=== PATIENT | male | born 1945 | race African-American/Black ===

== ENCOUNTER 2018-05-24 21:34 | Inpatient (IN) | payer MEDICAID, OTHER ==
[~2018-05-24] VITALS: Ht 182.9 cm; Wt 99.8 kg
[2018-05-24] MEDS ORDERED: HYDROcodone/APAP 5/325MG 1 TAB TABLET PO ONE (22:45)
--- NOTE | 2018-05-24 23:35 | PHYS DOC ---
Past Medical History Past Medical History: No Pertinent History Past Surgical History: Other Additional Past Surgical Histo: THYROIDECTOMY Alcohol Use: None Drug Use: None Adult General Chief Complaint Chief Complaint: UPPER EXTREMITY INJURY HPI HPI Patient is a 73 year old male who presents with right wrist pain after a fall, slipped on the ice falling backwards catching himself on his outstretched hand. Increased pain with movement. Improved pain with holding it still. No numbness or tingling. History is through the patient's son who is acting as financial accounting analyst. Pain is moderate to severe, especially with movement. [] Review of Systems Review of Systems Constitutional: Denies fever or chills [] Eyes: Denies change in visual acuity, redness, or eye pain [] HENT: Denies nasal congestion or sore throat [] Respiratory: Denies cough or shortness of breath [] Cardiovascular: No chest pain or palpitations[] GI: Denies abdominal pain, nausea, vomiting, bloody stools or diarrhea [] : Denies dysuria or hematuria [] Musculoskeletal: Denies back pain, see history of present illness[] Integument: Denies rash or skin lesions [] Neurologic: Denies headache, focal weakness or sensory changes [] Endocrine: Denies polyuria or polydipsia [] All other systems were reviewed and found to be within normal limits, except as documented in this note. Current Medications Current Medications Current Medications Medications (Trade) Dose Ordered Sig/David Start Time Stop Time Status Last Admin Dose Admin Acetaminophen/ Hydrocodone Bitart (Lortab 5/325) 1 tab 1X ONCE 05/24/18 22:45 05/24/18 22:46 DC 05/24/18 22:50 1 TAB Allergies Allergies Allergies Coded Allergies Type Severity Reaction Last Updated Verified No Known Drug Allergies 05/24/18 No Physical Exam Physical Exam Constitutional: Well developed, well nourished, mild to moderate discomfort, non -toxic appearance. [] HENT: Normocephalic, atraumatic, bilateral external ears normal, oropharynx moist, no oral exudates, nose normal. [] Eyes: PERRLA, EOMI, conjunctiva normal, no discharge. [] Neck: Normal range of motion, no tenderness, supple, no stridor. [] Cardiovascular:Heart rate regular rhythm, no murmur [] Lungs & Thorax: Bilateral breath sounds clear to auscultation [] Abdomen: Bowel sounds normal, soft, no tenderness, no masses, no pulsatile masses. [] Skin: Warm, dry, no erythema, no rash. [] Back: No tenderness, no CVA tenderness. [] Extremities: Tenderness of the distal radius. Patient has limited active range of motion at the wrist secondary to pain. No elbow tenderness. Patient is distally neurovascularly intact, cap refill less than 2 seconds. There is edema around the wrist. Other joints show no cyanosis, no clubbing, ROM intact, no edema. [] Neurologic: Alert and oriented X 3, normal motor function, normal sensory function, no focal deficits noted. [] Psychologic: Affect normal, judgement normal, mood normal. [] Current Patient Data Vital Signs Vital Signs Date Time Temp Pulse Resp B/P (MAP) Pulse Ox O2 Delivery O2 Flow Rate FiO2 05/24/18 22:50 16 98 Room Air 05/24/18 22:05 97.7 75 143/80 (101) 97.7 EKG EKG [] Radiology/Procedures Radiology/Procedures X-ray of the right wrist and forearm shows evidence of a comminuted distal radius fracture[] Course & Med Decision Making Course & Med Decision Making Pertinent Labs and Imaging studies reviewed. (See chart for details) ED course: Patient arrived, was placed in bed, tolerate exam well. Patient was given pain medicine and had x-rays obtained. After the return the x-ray, consultation was made with orthopedic surgery service who noted the patient would need to be operatively repaired. Offered patient and family the option of going home for outpatient follow-up versus admission and they elected admission for early operative repair. Consultation was subsequently made with the hospitalist service for medical management and clearance. Medical decision making: Patient appears to have a fracture of the distal radius , no evidence of an open fracture, no evidence of neuro or vascular compromise.[ ] Dragon Disclaimer Dragon Disclaimer This electronic medical record was generated, in whole or in part, using a voice recognition dictation system. Departure Departure Impression: Primary Impression: Fracture of right distal radius Disposition: 01 HOME, SELF-CARE Admitting Physician: Other Condition: IMPROVED Referrals: UNKNOWN PCP NAME (PCP) Splinting Patient and family informed of findings. Distal radius fracture, splinted applied by nurse and physician[]. The splint is checked by me [], with appropriate stabilization of the injury. Distal capillary refill less than 2 seconds and distal neurologic function intact] RICKY LIMON DO May 24, 2018 23:35
[2018-05-24] MEDS ORDERED: ONDANSETRON PF 4 MG/2 ML VIAL. IV PRN (23:45)
[2018-05-24] MEDS ORDERED: ACETAMINOPHEN 325 MG TABLET. PO PRN (23:45)
[2018-05-25] VITALS (12 sets, daily range): BP systolic 137–165; BP diastolic 85–98
[2018-05-25 00:01] LABS: BASO % 1 % (0-3); EOS % 0 % (0-3); HEMOGLOBIN 12.3 g/dL (13.0-17.5); LYMPH # 0.5 x10^3/uL (1.0-4.8); LYMPH % 6 % (24-48); MEAN CORPUSCULAR HEMOGLOBIN 30 pg (25-35); MEAN CORPUSCULAR HGB CONC 33 g/dL (31-37); MEAN CORPUSCULAR VOLUME 91 fL (79-100); MONO # 0.2 x10^3/uL (0.0-1.1); MONO % 3 % (0-9); NEUT # 7.9 x10^3uL (1.8-7.7); NEUT % 91 % (31-73); PLATELET COUNT 252 x10^3/uL (140-400); RED BLOOD COUNT 4.07 x10^6/uL (4.30-5.70); RED CELL DISTRIBUTION WIDTH 13.9 % (11.5-14.5); WHITE BLOOD COUNT 8.7 x10^3/uL (4.0-11.0)
[2018-05-25 00:08] LABS: CALCIUM 9.7 mg/dL (8.5-10.1); CREATININE 1.3 mg/dL (0.7-1.3); GFR 65.8; POTASSIUM 3.3 mmol/L (3.5-5.1)
[2018-05-25 00:12] LABS: PROTHROMBIN TIME PATIENT 12.7 SEC (11.7-14.0)
[2018-05-25 00:56] LABS: % BANDS 8 % (0-9); % LYMPHS 7 % (24-48); % MONOS 2 % (0-10); % SEGS 83 % (35-66)
[2018-05-25 00:57] LABS: PLT ESTIMATE ADEQUATE (ADEQUATE)
--- NOTE | 2018-05-25 03:50 | NUR ---
Received report from SENTHIL Sanderson in the Emergency Department. Patient arrived to unit at 0100 via wheelchair accompanied by his and son. 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 Patient complaint of right distal radius arm fracture and reported his pain a 3/10. Patient assessment was conducted and documented. Patient son translated for the patient during the admission. was to stay the night with the patient. Patient was orientated to the room, bed controls and call light and remote functions. Patients bed was placed in the lowest position and locked. Will continue to monitor the patient.
--- NOTE | 2018-05-25 08:00 | RAD ---
Indication: Fall with pain and swelling in the wrist TECHNIQUE: 3 views of the right wrist and 2 views of the right forearm COMPARISON: None FINDINGS: Wrist: Comminuted fracture is seen of the distal radius with no extension to the radiocarpal joint. Extension is seen to the distal radioulnar joint. Moderate wrist swelling. Forearm: No proximal forearm fracture. Elbow joint appears intact. IMPRESSION: Comminuted fracture of the distal radius. Electronically signed by: Sebastian Hancock DO (05/25/2018 7:55 AM) [facility]
[2018-05-25] MEDS: MORPHINE SULFATE 4 MG/ML VIAL. IV PRN ×2 (10:56→15:11)
--- NOTE | 2018-05-25 11:08 | PDOC1 ---
History and Physical Date of Admission Date of Admission DATE: 05/25/18 TIME: 11:06 Identification/Chief Complaint Chief Complaint presented to ER with right wrist pain after a fall, slipped on the ice falling backwards catching himself on his outstretched hand. Increased pain with movement. . No numbness or tingling. History is through the patient's son who is acting as recycling operator. Operative Note Operative Note Date of surgery: 05/25/2018 Preoperative diagnosis: Displaced 2 part right distal radius fracture Postoperative diagnosis: Same Operative procedure: Operative reduction internal fixation right distal radius fracture with volar plate and screw fixation Surgeon: Constantine Anesthesia: Gen. Estimated blood loss: 10 mL Complications: None Past Medical History Past Medical History Past Medical History Past Medical History: No Pertinent History Past Surgical History: Other Additional Past Surgical Histo: THYROIDECTOMY Alcohol Use: None Drug Use: None FAMILY HX HTN Cardiovascular: HTN Endocrine: No pertinent hx Dermatology: No pertinent hx Family History Family History: Hypertension Social History Smoke: No ALCOHOL: none Drugs: None Current Medications Current Medications Current Medications Acetaminophen/ Hydrocodone Bitart (Lortab 5/325) 1 tab 1X ONCE PO Last administered on 05/24/18at 22:50; Start 05/24/18 at 22:45; Stop 05/24/18 at 22:46; Status DC Ondansetron HCl (Zofran) 4 mg PRN Q8HRS PRN IV NAUSEA/VOMITING; Start 05/24/18 at 23:45; Stop 05/25/18 at 23:44 Morphine Sulfate (Morphine Sulfate) 4 mg PRN Q2HR PRN IV PAIN Last administered on 05/25/18at 10:56; Start 05/24/18 at 23:45; Stop 05/25/18 at 23:44 Acetaminophen (Tylenol) 650 mg PRN Q4HRS PRN PO FEVER; Start 05/24/18 at 23:45; Stop 05/25/18 at 23:44 Allergies Allergies: Coded Allergies: No Known Drug Allergies (Unverified , 05/24/18) ROS Review of System Review of Systems Review of Systems Constitutional: Denies fever or chills [] Eyes: Denies change in visual acuity, redness, or eye pain [] HENT: Denies nasal congestion or sore throat [] Respiratory: Denies cough or shortness of breath [] Cardiovascular: No chest pain or palpitations[] GI: Denies abdominal pain, nausea, vomiting, bloody stools or diarrhea [] : Denies dysuria or hematuria [] Musculoskeletal: Denies back pain, see history of present illness[] Integument: Denies rash or skin lesions [] Neurologic: Denies headache, focal weakness or sensory changes [] Endocrine: Denies polyuria or polydipsia [] 14 pt systems were reviewed and found to be within normal limits, except as documented General: YES: Fatigue ALLERGY AND IMMUNOLOGY: No: Hives, Insect Bite Sensitivity, Itchy/Watery Eyes, Nasal Congestion, Post Nasal Drip, Seasonal Allergies, Other Respiratory: No: Cough, Hemoptysis, Orthopnea, Pleuritic Pain, Shortness of breath, SOB with excertion, Sputum Changes, Stridor, Tachypnea, Wheezing, Other Cardiovascular: No Chest Pain, No Palpitations, No Orthopnea, No Paroxysmal Noc. Dyspnea, No Edema, No Lt Headedness, No Other Neurological: Yes Gait Disturbance Physical Exam Physical Exam Physical Exam Physical Exam Constitutional: Well developed, well nourished, mild to moderate discomfort, non -toxic appearance. [] HENT: Normocephalic, atraumatic, bilateral external ears normal, oropharynx moist, no oral exudates, nose normal. [] Eyes: PERRLA, EOMI, conjunctiva normal, no discharge. [] Neck: Normal range of motion, no tenderness, supple, no stridor. [] Cardiovascular:Heart rate regular rhythm, no murmur [] Lungs & Thorax: Bilateral breath sounds clear to auscultation [] Abdomen: Bowel sounds normal, soft, no tenderness, no masses, no pulsatile masses. [] Skin: Warm, dry, no erythema, no rash. [] Back: No tenderness, no CVA tenderness. [] Extremities: Tenderness of the distal radius. Patient has limited active range of motion at the wrist secondary to pain. No elbow tenderness. Patient is distally neurovascularly intact, cap refill less than 2 seconds. There is edema around the wrist. Other joints show no cyanosis, no clubbing, ROM intact, no edema. [] Neurologic: Alert and oriented X 3, normal motor function, normal sensory function, no focal deficits noted. [] Psychologic: Affect normal, judgement normal, mood normal. [] General: Oriented X3, Cooperative Lungs: Clear to auscultation Heart: RRR Breasts: Not examined Abdomen: Soft Rectal Exam: not examined PELVIC: Examination not indicated Extremities: No cyanosis Neuro: Normal speech, Cranial nerves 3-12 NL Psych/Mental Status: Mental status NL Vitals Vitals Vital Signs Date Time Temp Pulse Resp B/P (MAP) Pulse Ox O2 Delivery O2 Flow Rate FiO2 05/25/18 10:56 98 Room Air 05/25/18 07:00 91.8 85 16 141/88 (105) 91.8 Labs Labs Laboratory Tests Test 05/24/18 23:50 White Blood Count 8.7 x10^3/uL (4.0-11.0) Red Blood Count 4.07 x10^6/uL (4.30-5.70) Hemoglobin 12.3 g/dL (13.0-17.5) Hematocrit 37.0 % (39.0-53.0) Mean Corpuscular Volume 91 fL (79-100) Mean Corpuscular Hemoglobin 30 pg (25-35) Mean Corpuscular Hemoglobin Concent 33 g/dL (31-37) Red Cell Distribution Width 13.9 % (11.5-14.5) Platelet Count 252 x10^3/uL (140-400) Neutrophils (%) (Auto) 91 % (31-73) Lymphocytes (%) (Auto) 6 % (24-48) Monocytes (%) (Auto) 3 % (0-9) Eosinophils (%) (Auto) 0 % (0-3) Basophils (%) (Auto) 1 % (0-3) Neutrophils # (Auto) 7.9 x10^3uL (1.8-7.7) Lymphocytes # (Auto) 0.5 x10^3/uL (1.0-4.8) Monocytes # (Auto) 0.2 x10^3/uL (0.0-1.1) Eosinophils # (Auto) 0.0 x10^3/uL (0.0-0.7) Basophils # (Auto) 0.0 x10^3/uL (0.0-0.2) Segmented Neutrophils % 83 % (35-66) Band Neutrophils % 8 % (0-9) Lymphocytes % 7 % (24-48) Monocytes % 2 % (0-10) Platelet Estimate Adequate (ADEQUATE) Prothrombin Time 12.7 SEC (11.7-14.0) Prothromb Time International Ratio 1.0 (0.8-1.1) Sodium Level 137 mmol/L (136-145) Potassium Level 3.3 mmol/L (3.5-5.1) Chloride Level 101 mmol/L (98-107) Carbon Dioxide Level 29 mmol/L (21-32) Anion Gap 7 (6-14) Blood Urea Nitrogen 16 mg/dL (8-26) Creatinine 1.3 mg/dL (0.7-1.3) Estimated GFR (Cockcroft-Gault) 65.8 Glucose Level 141 mg/dL (70-99) Calcium Level 9.7 mg/dL (8.5-10.1) Laboratory Tests Test 05/24/18 23:50 White Blood Count 8.7 x10^3/uL (4.0-11.0) Red Blood Count 4.07 x10^6/uL (4.30-5.70) Hemoglobin 12.3 g/dL (13.0-17.5) Hematocrit 37.0 % (39.0-53.0) Mean Corpuscular Volume 91 fL (79-100) Mean Corpuscular Hemoglobin 30 pg (25-35) Mean Corpuscular Hemoglobin Concent 33 g/dL (31-37) Red Cell Distribution Width 13.9 % (11.5-14.5) Platelet Count 252 x10^3/uL (140-400) Neutrophils (%) (Auto) 91 % (31-73) Lymphocytes (%) (Auto) 6 % (24-48) Monocytes (%) (Auto) 3 % (0-9) Eosinophils (%) (Auto) 0 % (0-3) Basophils (%) (Auto) 1 % (0-3) Neutrophils # (Auto) 7.9 x10^3uL (1.8-7.7) Lymphocytes # (Auto) 0.5 x10^3/uL (1.0-4.8) Monocytes # (Auto) 0.2 x10^3/uL (0.0-1.1) Eosinophils # (Auto) 0.0 x10^3/uL (0.0-0.7) Basophils # (Auto) 0.0 x10^3/uL (0.0-0.2) Segmented Neutrophils % 83 % (35-66) Band Neutrophils % 8 % (0-9) Lymphocytes % 7 % (24-48) Monocytes % 2 % (0-10) Platelet Estimate Adequate (ADEQUATE) Prothrombin Time 12.7 SEC (11.7-14.0) Prothromb Time International Ratio 1.0 (0.8-1.1) Sodium Level 137 mmol/L (136-145) Potassium Level 3.3 mmol/L (3.5-5.1) Chloride Level 101 mmol/L (98-107) Carbon Dioxide Level 29 mmol/L (21-32) Anion Gap 7 (6-14) Blood Urea Nitrogen 16 mg/dL (8-26) Creatinine 1.3 mg/dL (0.7-1.3) Estimated GFR (Cockcroft-Gault) 65.8 Glucose Level 141 mg/dL (70-99) Calcium Level 9.7 mg/dL (8.5-10.1) Images Images STATUS: ADM IN ORD. PHYSICIAN: RICKY LIMON DO REASON: fall with pain and swelling in the wrist PROCEDURE: FOREARM RIGHT Indication: Fall with pain and swelling in the wrist TECHNIQUE: 3 views of the right wrist and 2 views of the right forearm COMPARISON: None FINDINGS: Wrist: Comminuted fracture is seen of the distal radius with no extension to the radiocarpal joint. Extension is seen to the distal radioulnar joint. Moderate wrist swelling. Forearm: No proximal forearm fracture. Elbow joint appears intact. IMPRESSION: Comminuted fracture of the distal radius. Electronically signed by: Sebastian Hancock DO (05/25/2018 7:55 AM) [facility] VTE Prophylaxis Ordered VTE Prophylaxis Devices: Yes VTE Pharmacological Prophylaxi: Yes Assessment/Plan Assessment/Plan IMPRESSION: Comminuted fracture of the distal radius. PLAN TO OR TODAY HOME MEDS DVT PROPHYLAXIS CRYSTAL CORTES MD May 25, 2018 11:08
[2018-05-25] MEDS ORDERED: IV RINGERS,LACTATED 1000ML 1,000 ML IV SCH (11:30)
[2018-05-25] MEDS ORDERED: PROCHLORPERAZINE 10 MG/2 ML VIAL. IV PRN (11:45)
[2018-05-25] MEDS ORDERED: fentaNYL PF VIAL 100 MCG/2 ML VIAL IV PRN ×2 (11:45)
[2018-05-25] MEDS ORDERED: HYDROmorphone 2 MG/ML VIAL IV PRN (11:45)
[2018-05-25] MEDS ORDERED: LIDOCAINE 1% PF 2 ML VIAL. ID PRN (11:45)
[2018-05-25] MEDS ORDERED: ONDANSETRON PF 4 MG/2 ML VIAL. IV PRN (11:45)
[2018-05-25] MEDS ORDERED: DEXAMETHASONE SOD PHOS 20 MG/5 ML VIAL. ONE (12:26)
[2018-05-25] MEDS ORDERED: PROPOFOL 20 ML IV ONE (12:26)
[2018-05-25] MEDS ORDERED: ONDANSETRON PF 4 MG/2 ML VIAL. ONE (12:26)
[2018-05-25] MEDS ORDERED: LIDOCAINE 2% PF 5 ML VIAL. ONE (12:26)
[2018-05-25] MEDS ORDERED: fentaNYL PF VIAL 100 MCG/2 ML VIAL ONE (12:26)
[2018-05-25] MEDS ORDERED: PHENYLEPHRINE 10 MG/ML VIAL. ONE (13:49)
[2018-05-25] MEDS ORDERED: BUPIVACAINE MPF 0.5% 30 ML VIAL. ONE (14:05)
[2018-05-25] MEDS ORDERED: SEVOFLURANE 31 TO 60 MINUTES. IH ONE (14:26)
--- NOTE | 2018-05-25 14:54 | PDOC4 ---
Operative Note Operative Note Date of surgery: 05/25/2018 Preoperative diagnosis: Displaced 2 part right distal radius fracture Postoperative diagnosis: Same Operative procedure: Operative reduction internal fixation right distal radius fracture with volar plate and screw fixation Surgeon: Constantine Anesthesia: Gen. Estimated blood loss: 10 mL Complications: None Operative indications: Please see my preoperative consultation for detailed operative indications and note that I had gone over with his sons who translated as well as on the school age teacher line for consent for the operative procedure explaining the relevant anatomy the desired alignment of the bone and the comminution that was occurring that would likely prevent satisfactory closed reduction. I therefore recommended open reduction internal fixation and explained the undesirable consequences of the current alignment. We talked about the possibility of infection nerve or blood vessel damage medical or other anesthetic complications among others. He agrees to proceed with operative evaluation and treatment. Operative text: Patient was identified procedure verified patient placed in the supine position on the operating table. After adequate amounts of general anesthesia were administered the right upper extremity was prepped and draped in standard sterile fashion with an upper arm tourniquet. After timeout was performed patient procedure identified and verified tourniquet was inflated to 250 mmHg after exsanguinating by Esmarch bandage. A volar Michael approach was carried out to the distal radius subperiosteal dissection was carried out and reduction was carried out under fluoroscopic guidance a standard DVR cross lock Nishi volar locking plate was selected and appropriately positioned with a nonlocking cortical screw in the sliding hole the plate was finally aligned and distal locking screws were placed under fluoroscopic guidance to ensure satisfactory reduction and hardware placement assessing the length and positioning of screws supporting but out of the joint. After locking screws were adequately placed additional nonlocking shaft screws were placed for supplementary fixation proximally thorough irrigation carried out normal saline solution closure accomplished with buried Vicryl subcuticular Monocryl Steri- Strips and Mastisol followed by a well-padded volar splint fingers were noted be warm pink find deflation of tourniquet patient was returned to recovery room in stable condition having tolerated procedure well DOMINGUEZ ACOSTA MD May 25, 2018 14:54
[2018-05-25] MEDS: MORPHINE SULFATE 2 MG/ML VIAL. IV PRN ×2 (14:59→15:25)
[2018-05-25] MEDS ORDERED: hydrALAZINE 20 MG/ML VIAL. IVP PRN (16:15)
--- NOTE | 2018-05-25 21:33 | CONS ---
DATE OF CONSULTATION: 05/25/2018 REQUESTING PHYSICIAN: Chuy Bonner MD CHIEF COMPLAINT: Right wrist fracture. HISTORY OF PRESENT ILLNESS: The patient is a 73-year-old male who was interviewed with the help of his son who acts as a concrete vault maker and states that the patient sustained a right wrist fracture after a fall when he slipped on the ice and fell backwards catching himself on his outstretched right hand. He had immediate onset of pain and deformity and elected hospital admission after Emergency Department evaluation. PAST MEDICAL HISTORY: He denies any significant past medical history. PAST SURGICAL HISTORY: Thyroidectomy. FAMILY HISTORY: Hypertension. SOCIAL HISTORY: Independently ambulatory, otherwise healthy. Denies smoking, alcohol or drug use. MEDICATIONS: List is reviewed. ALLERGIES: He has no known drug allergies. REVIEW OF SYSTEMS: Did not strike his head, no loss of consciousness. Denies fever, chills, any headache, visual changes, radiating pain, focal weakness, numbness, tingling, change in his bowel or bladder function and no other joint injuries. PHYSICAL EXAMINATION: GENERAL: A pleasant, cooperative 73-year-old male, alert and oriented, no acute distress. EXTREMITIES: Examination of the right wrist reveals obvious deformity with no skin compromise. He can flex and extend his fingers. There is no sensory deficit. Capillary refill is intact. Normal examination of the contralateral wrist, bilateral elbows and shoulders with intact motor function, distal pulses, sensation, reflexes, skin in both upper extremities throughout. IMAGING: X-rays show a comminuted fracture that is malaligned, but does not display intraarticular extension. IMPRESSION: Right distal radius fracture. TREATMENT PLAN: I talked with the patient through his son as an in school suspension coordinator and explained the normal anatomy and showed him the x-rays and acceptability of the current alignment, and the fact that I did not think closed reduction would be successful due to the comminution. We talked about open reduction and plating to achieve and maintain best alignment, possibility of infection, nerve or blood vessel damage, medical or other anesthetic complications among others. All his questions were answered. He wishes to proceed with surgical evaluation and treatment, which will occur today. DOMINGUEZ ACOSTA MD DR: RASHIDA/mary JOB#: [id number] / [id number]
[2018-05-26 03:21] VITALS: BP 140/93
[2018-05-26 05:02] LABS: BASO % 0 % (0-3); EOS % 0 % (0-3); HEMOGLOBIN 11.4 g/dL (13.0-17.5); LYMPH # 0.6 x10^3/uL (1.0-4.8); LYMPH % 10 % (24-48); MEAN CORPUSCULAR HEMOGLOBIN 30 pg (25-35); MEAN CORPUSCULAR HGB CONC 33 g/dL (31-37); MEAN CORPUSCULAR VOLUME 91 fL (79-100); MONO # 0.2 x10^3/uL (0.0-1.1); MONO % 3 % (0-9); NEUT # 5.1 x10^3uL (1.8-7.7); NEUT % 87 % (31-73); PLATELET COUNT 249 x10^3/uL (140-400); RED BLOOD COUNT 3.85 x10^6/uL (4.30-5.70); RED CELL DISTRIBUTION WIDTH 13.8 % (11.5-14.5); WHITE BLOOD COUNT 5.8 x10^3/uL (4.0-11.0)
[2018-05-26 05:18] LABS: CALCIUM 8.8 mg/dL (8.5-10.1); CREATININE 1.3 mg/dL (0.7-1.3); GFR 65.8; POTASSIUM 3.7 mmol/L (3.5-5.1)
[2018-05-26 07:00] VITALS: BP 163/101
--- NOTE | 2018-05-26 09:46 | PDOC ---
PROGRESS NOTES History of Present Illness History of Present Illness TECHNIQUE: 3 views of the right wrist and 2 views of the right forearm COMPARISON: None FINDINGS: Wrist: Comminuted fracture is seen of the distal radius with no extension to the radiocarpal joint. Extension is seen to the distal radioulnar joint. Moderate wrist swelling. Forearm: No proximal forearm fracture. Elbow joint appears intact. IMPRESSION: Comminuted fracture of the distal radius. Electronically signed by: Sebastian Hancock DO (05/25/2018 7:55 AM) [facility] VTE Prophylaxis Ordered VTE Prophylaxis Devices: Yes VTE Pharmacological Prophylaxi: Yes Assessment/Plan Assessment/Plan IMPRESSION: Comminuted fracture of the distal radius. PLAN TO OR 05/25 pod # 1 HOME MEDS DVT PROPHYLAXIS HOME TODAY WITH HOME HEALTH, FAMILY WILL HELP HIM NEGOTIATE STEPS, OFF WORK SEE PCP IN 2-3 DAYS, LOW CARB DIET , A1C Vitals Vitals Vital Signs Date Time Temp Pulse Resp B/P (MAP) Pulse Ox O2 Delivery O2 Flow Rate FiO2 05/26/18 08:41 91 163/101 05/26/18 07:00 98.7 18 97 Room Air 98.7 05/25/18 14:42 10 Physical Exam General: Alert, Oriented X3, Cooperative, No acute distress Heart: Regular rate, Normal S1, Normal S2 Lungs: Clear Abdomen: Normal bowel sounds, Soft Extremities: No cyanosis, Normal pulses Skin: No significant lesion Labs LABS Laboratory Tests Test 05/26/18 04:00 White Blood Count 5.8 x10^3/uL (4.0-11.0) Red Blood Count 3.85 x10^6/uL (4.30-5.70) Hemoglobin 11.4 g/dL (13.0-17.5) Hematocrit 35.0 % (39.0-53.0) Mean Corpuscular Volume 91 fL (79-100) Mean Corpuscular Hemoglobin 30 pg (25-35) Mean Corpuscular Hemoglobin Concent 33 g/dL (31-37) Red Cell Distribution Width 13.8 % (11.5-14.5) Platelet Count 249 x10^3/uL (140-400) Neutrophils (%) (Auto) 87 % (31-73) Lymphocytes (%) (Auto) 10 % (24-48) Monocytes (%) (Auto) 3 % (0-9) Eosinophils (%) (Auto) 0 % (0-3) Basophils (%) (Auto) 0 % (0-3) Neutrophils # (Auto) 5.1 x10^3uL (1.8-7.7) Lymphocytes # (Auto) 0.6 x10^3/uL (1.0-4.8) Monocytes # (Auto) 0.2 x10^3/uL (0.0-1.1) Eosinophils # (Auto) 0.0 x10^3/uL (0.0-0.7) Basophils # (Auto) 0.0 x10^3/uL (0.0-0.2) Sodium Level 140 mmol/L (136-145) Potassium Level 3.7 mmol/L (3.5-5.1) Chloride Level 102 mmol/L (98-107) Carbon Dioxide Level 27 mmol/L (21-32) Anion Gap 11 (6-14) Blood Urea Nitrogen 14 mg/dL (8-26) Creatinine 1.3 mg/dL (0.7-1.3) Estimated GFR (Cockcroft-Gault) 65.8 Glucose Level 155 mg/dL (70-99) Calcium Level 8.8 mg/dL (8.5-10.1) Comment Review of Relevant I have reviewed the following items paulo (where applicable) has been applied. Labs Laboratory Tests Test 05/24/18 23:50 05/26/18 04:00 White Blood Count 8.7 x10^3/uL (4.0-11.0) 5.8 x10^3/uL (4.0-11.0) Red Blood Count 4.07 x10^6/uL (4.30-5.70) 3.85 x10^6/uL (4.30-5.70) Hemoglobin 12.3 g/dL (13.0-17.5) 11.4 g/dL (13.0-17.5) Hematocrit 37.0 % (39.0-53.0) 35.0 % (39.0-53.0) Mean Corpuscular Volume 91 fL (79-100) 91 fL (79-100) Mean Corpuscular Hemoglobin 30 pg (25-35) 30 pg (25-35) Mean Corpuscular Hemoglobin Concent 33 g/dL (31-37) 33 g/dL (31-37) Red Cell Distribution Width 13.9 % (11.5-14.5) 13.8 % (11.5-14.5) Platelet Count 252 x10^3/uL (140-400) 249 x10^3/uL (140-400) Neutrophils (%) (Auto) 91 % (31-73) 87 % (31-73) Lymphocytes (%) (Auto) 6 % (24-48) 10 % (24-48) Monocytes (%) (Auto) 3 % (0-9) 3 % (0-9) Eosinophils (%) (Auto) 0 % (0-3) 0 % (0-3) Basophils (%) (Auto) 1 % (0-3) 0 % (0-3) Neutrophils # (Auto) 7.9 x10^3uL (1.8-7.7) 5.1 x10^3uL (1.8-7.7) Lymphocytes # (Auto) 0.5 x10^3/uL (1.0-4.8) 0.6 x10^3/uL (1.0-4.8) Monocytes # (Auto) 0.2 x10^3/uL (0.0-1.1) 0.2 x10^3/uL (0.0-1.1) Eosinophils # (Auto) 0.0 x10^3/uL (0.0-0.7) 0.0 x10^3/uL (0.0-0.7) Basophils # (Auto) 0.0 x10^3/uL (0.0-0.2) 0.0 x10^3/uL (0.0-0.2) Segmented Neutrophils % 83 % (35-66) Band Neutrophils % 8 % (0-9) Lymphocytes % 7 % (24-48) Monocytes % 2 % (0-10) Platelet Estimate Adequate (ADEQUATE) Prothrombin Time 12.7 SEC (11.7-14.0) Prothromb Time International Ratio 1.0 (0.8-1.1) Sodium Level 137 mmol/L (136-145) 140 mmol/L (136-145) Potassium Level 3.3 mmol/L (3.5-5.1) 3.7 mmol/L (3.5-5.1) Chloride Level 101 mmol/L (98-107) 102 mmol/L (98-107) Carbon Dioxide Level 29 mmol/L (21-32) 27 mmol/L (21-32) Anion Gap 7 (6-14) 11 (6-14) Blood Urea Nitrogen 16 mg/dL (8-26) 14 mg/dL (8-26) Creatinine 1.3 mg/dL (0.7-1.3) 1.3 mg/dL (0.7-1.3) Estimated GFR (Cockcroft-Gault) 65.8 65.8 Glucose Level 141 mg/dL (70-99) 155 mg/dL (70-99) Calcium Level 9.7 mg/dL (8.5-10.1) 8.8 mg/dL (8.5-10.1) Laboratory Tests Test 05/26/18 04:00 White Blood Count 5.8 x10^3/uL (4.0-11.0) Red Blood Count 3.85 x10^6/uL (4.30-5.70) Hemoglobin 11.4 g/dL (13.0-17.5) Hematocrit 35.0 % (39.0-53.0) Mean Corpuscular Volume 91 fL (79-100) Mean Corpuscular Hemoglobin 30 pg (25-35) Mean Corpuscular Hemoglobin Concent 33 g/dL (31-37) Red Cell Distribution Width 13.8 % (11.5-14.5) Platelet Count 249 x10^3/uL (140-400) Neutrophils (%) (Auto) 87 % (31-73) Lymphocytes (%) (Auto) 10 % (24-48) Monocytes (%) (Auto) 3 % (0-9) Eosinophils (%) (Auto) 0 % (0-3) Basophils (%) (Auto) 0 % (0-3) Neutrophils # (Auto) 5.1 x10^3uL (1.8-7.7) Lymphocytes # (Auto) 0.6 x10^3/uL (1.0-4.8) Monocytes # (Auto) 0.2 x10^3/uL (0.0-1.1) Eosinophils # (Auto) 0.0 x10^3/uL (0.0-0.7) Basophils # (Auto) 0.0 x10^3/uL (0.0-0.2) Sodium Level 140 mmol/L (136-145) Potassium Level 3.7 mmol/L (3.5-5.1) Chloride Level 102 mmol/L (98-107) Carbon Dioxide Level 27 mmol/L (21-32) Anion Gap 11 (6-14) Blood Urea Nitrogen 14 mg/dL (8-26) Creatinine 1.3 mg/dL (0.7-1.3) Estimated GFR (Cockcroft-Gault) 65.8 Glucose Level 155 mg/dL (70-99) Calcium Level 8.8 mg/dL (8.5-10.1) Medications Current Medications Acetaminophen/ Hydrocodone Bitart (Lortab 5/325) 1 tab 1X ONCE PO Last administered on 05/24/18at 22:50; Start 05/24/18 at 22:45; Stop 05/24/18 at 22:46; Status DC Ondansetron HCl (Zofran) 4 mg PRN Q8HRS PRN IV NAUSEA/VOMITING; Start 05/24/18 at 23:45; Stop 05/25/18 at 23:44; Status DC Morphine Sulfate (Morphine Sulfate) 4 mg PRN Q2HR PRN IV PAIN Last administered on 05/25/18at 15:11; Start 05/24/18 at 23:45; Stop 05/25/18 at 23:44 ; Status DC Acetaminophen (Tylenol) 650 mg PRN Q4HRS PRN PO FEVER; Start 05/24/18 at 23:45; Stop 05/25/18 at 23:44; Status DC Ondansetron HCl (Zofran) 4 mg PRN Q6HRS PRN IV NAUSEA/VOMITING; Start 05/25/18 at 11:45; Stop 05/25/18 at 19:00; Status DC Fentanyl Citrate (Fentanyl 2ml Vial) 25 mcg PRN Q5MIN PRN IV MILD PAIN; Start 05/25/18 at 11:45; Stop 05/25/18 at 19:00; Status DC Fentanyl Citrate (Fentanyl 2ml Vial) 50 mcg PRN Q5MIN PRN IV MODERATE TO SEVERE PAIN; Start 05/25/18 at 11:45; Stop 05/25/18 at 19:00; Status DC Morphine Sulfate (Morphine Sulfate) 1 mg PRN Q10MIN PRN IV SEVERE PAIN Last administered on 05/25/18at 15:25; Start 05/25/18 at 11:45; Stop 05/25/18 at 19:00 ; Status DC Ringer's Solution 1,000 ml @ 30 mls/hr Q24H IV ; Start 05/25/18 at 11:30; Stop 05/25/18 at 19:00; Status DC Lidocaine HCl (Xylocaine-Mpf 1% 2ml Vial) 2 ml 1X PRN PRN ID IV START; Start at 11:45; Stop 05/25/18 at 19:00; Status DC Hydromorphone HCl (Dilaudid) 0.5 mg PRN Q10MIN PRN IV SEV PAIN, Second choice; Start 05/25/18 at 11:45; Stop 05/25/18 at 19:00; Status DC Prochlorperazine Edisylate (Compazine) 5 mg PACU PRN PRN IV NAUSEA, MRX1; Start 05/25/18 at 11:45; Stop 05/25/18 at 19:00; Status DC Propofol 20 ml @ As Directed STK-MED ONCE IV ; Start 05/25/18 at 12:26; Stop 01/31 at 12:28; Status DC Dexamethasone Sodium Phosphate (Decadron) 20 mg STK-MED ONCE .ROUTE ; Start 01/31 at 12:26; Stop 05/25/18 at 12:28; Status DC Lidocaine HCl (Lidocaine Pf 2% Vial) 5 ml STK-MED ONCE .ROUTE ; Start 05/25/18 at 12:26; Stop 05/25/18 at 12:28; Status DC Ondansetron HCl (Zofran) 4 mg STK-MED ONCE .ROUTE ; Start 05/25/18 at 12:26; Stop 05/25/18 at 12:28; Status DC Fentanyl Citrate (Fentanyl 2ml Vial) 100 mcg STK-MED ONCE .ROUTE ; Start at 12:26; Stop 05/25/18 at 12:28; Status DC Cefazolin Sodium/ Dextrose 50 ml @ 100 mls/hr 1X ONCE IV Last administered on 05/25/18at 13:48; Start 05/25/18 at 13:30; Stop 05/25/18 at 13:59; Status DC Phenylephrine HCl (Sebastián-Synephrine Inj) 10 mg STK-MED ONCE .ROUTE ; Start at 13:49; Stop 05/25/18 at 13:51; Status DC Bupivacaine HCl (Sensorcaine Mpf 0.5%) 30 ml STK-MED ONCE .ROUTE Last administered on 05/25/18at 14:01; Start 05/25/18 at 14:05; Stop 05/25/18 at 14:07 ; Status DC Sevoflurane (Ultane) 30 ml STK-MED ONCE IH ; Start 05/25/18 at 14:26; Stop 05/25 at 14:28; Status DC Hydralazine HCl (Apresoline Inj) 10 mg PRN Q6HRS PRN IVP ELEVATED BP, SEE COMMENTS Last administered on 05/26/18at 08:41; Start 05/25/18 at 16:15 Vitals/I & O Vital Sign - Last 24 Hours 05/25/18 05/25/18 05/25/18 05/25/18 10:56 11:00 11:30 14:42 Temp 97.8 99.5 98.6 97.8 99.5 98.6 Pulse 86 74 84 Resp 18 20 16 B/P (MAP) 165/92 (116) 173/82 187/102 Pulse Ox 98 97 97 100 O2 Delivery Room Air Room Air Room Air Simple Mask O2 Flow Rate 10 05/25/18 05/25/18 05/25/18 05/25/18 14:57 14:59 15:11 15:12 Pulse 71 82 Resp 16 16 16 16 B/P (MAP) 186/104 175/105 Pulse Ox 100 100 100 92 O2 Delivery Room Air Simple Mask Room Air Room Air 05/25/18 05/25/18 05/25/18 05/25/18 15:25 15:46 16:01 16:01 Pulse 85 85 91 Resp 16 B/P (MAP) 137/88 (104) 145/91 (109) 137/88 (104) Pulse Ox 92 94 92 94 O2 Delivery Room Air 05/25/18 05/25/18 05/25/18 05/25/18 16:15 16:31 16:39 17:00 Pulse 94 87 85 B/P (MAP) 143/98 (113) 141/91 (108) 147/96 (113) Pulse Ox 93 98 92 93 O2 Delivery Room Air 05/25/18 05/25/18 05/25/18 05/25/18 17:30 18:00 19:30 23:59 Temp 98.4 98.5 98.4 98.5 Pulse 89 107 103 97 Resp 18 18 B/P (MAP) 149/96 (113) 161/92 (115) 152/95 (114) 143/97 (112) Pulse Ox 93 99 95 95 O2 Delivery Room Air Room Air 05/26/18 05/26/18 05/26/18 03:21 07:00 08:41 Temp 98.2 98.7 98.2 98.7 Pulse 100 91 91 Resp 18 18 B/P (MAP) 140/93 (109) 163/101 (121) 163/101 Pulse Ox 96 97 O2 Delivery Room Air Room Air Intake and Output 05/25/18 05/25/18 05/26/18 15:01 23:01 07:01 Intake Total 480 ml Output Total 200 ml Balance -200 ml 480 ml CRYSTAL CORTES MD May 26, 2018 09:46
[2018-05-26 11:00] VITALS: BP 140/73
--- NOTE | 2018-05-26 12:07 | NUR ---
SW following. Discussed with RN, pt is from home alone and has a lot of involved family. RN advised no SW needs and anticipates pt will discharge home today.
--- NOTE | 2018-05-26 12:43 | PDOC3 ---
Discharge Summary Date of Admission: May 24, 2018 Date of Discharge: May 26, 2018 Follow-Up: 3-5 days Admitting Diagnosis comment: Assessment/Plan Assessment/Plan IMPRESSION: Comminuted fracture of the distal radius. PLAN TO OR 05/25 pod # 1 HOME MEDS DVT PROPHYLAXIS HOME TODAY WITH HOME HEALTH, FAMILY WILL HELP HIM NEGOTIATE STEPS, OFF WORK SEE PCP IN 2-3 DAYS, LOW CARB DIET , A1C Vitals Vitals Vital Signs Date Time Temp Pulse Resp B/P (MAP) Pulse Ox O2 Delivery O2 Flow Rate FiO2 05/26/18 08:41 91 163/101 05/26/18 07:00 98.7 18 97 Room Air 98.7 05/25/18 14:42 10 Physical Exam General: Alert, Oriented X3, Cooperative, No acute distress Heart: Regular rate, Normal S1, Normal S2 Lungs: Clear Abdomen: Normal bowel sounds, Soft Extremities: No cyanosis, Normal pulses Skin: No significant lesion Brief Hospital Course Mr. Blue is a 73 old [sex] who presented with [ RIGHT RADIAL FX, FALL ] CONDITION AT DISCHARGE: Improved Discharge Medications Current Medications Acetaminophen/ Hydrocodone Bitart (Lortab 5/325) 1 tab 1X ONCE PO Last administered on 05/24/18at 22:50; Start 05/24/18 at 22:45; Stop 05/24/18 at 22:46; Status DC Ondansetron HCl (Zofran) 4 mg PRN Q8HRS PRN IV NAUSEA/VOMITING; Start 05/24/18 at 23:45; Stop 05/25/18 at 23:44; Status DC Morphine Sulfate (Morphine Sulfate) 4 mg PRN Q2HR PRN IV PAIN Last administered on 05/25/18at 15:11; Start 05/24/18 at 23:45; Stop 05/25/18 at 23:44 ; Status DC Acetaminophen (Tylenol) 650 mg PRN Q4HRS PRN PO FEVER; Start 05/24/18 at 23:45; Stop 05/25/18 at 23:44; Status DC Ondansetron HCl (Zofran) 4 mg PRN Q6HRS PRN IV NAUSEA/VOMITING; Start 05/25/18 at 11:45; Stop 05/25/18 at 19:00; Status DC Fentanyl Citrate (Fentanyl 2ml Vial) 25 mcg PRN Q5MIN PRN IV MILD PAIN; Start 05/25/18 at 11:45; Stop 05/25/18 at 19:00; Status DC Fentanyl Citrate (Fentanyl 2ml Vial) 50 mcg PRN Q5MIN PRN IV MODERATE TO SEVERE PAIN; Start 05/25/18 at 11:45; Stop 05/25/18 at 19:00; Status DC Morphine Sulfate (Morphine Sulfate) 1 mg PRN Q10MIN PRN IV SEVERE PAIN Last administered on 05/25/18at 15:25; Start 05/25/18 at 11:45; Stop 05/25/18 at 19:00 ; Status DC Ringer's Solution 1,000 ml @ 30 mls/hr Q24H IV ; Start 05/25/18 at 11:30; Stop 05/25/18 at 19:00; Status DC Lidocaine HCl (Xylocaine-Mpf 1% 2ml Vial) 2 ml 1X PRN PRN ID IV START; Start at 11:45; Stop 05/25/18 at 19:00; Status DC Hydromorphone HCl (Dilaudid) 0.5 mg PRN Q10MIN PRN IV SEV PAIN, Second choice; Start 05/25/18 at 11:45; Stop 05/25/18 at 19:00; Status DC Prochlorperazine Edisylate (Compazine) 5 mg PACU PRN PRN IV NAUSEA, MRX1; Start 05/25/18 at 11:45; Stop 05/25/18 at 19:00; Status DC Propofol 20 ml @ As Directed STK-MED ONCE IV ; Start 05/25/18 at 12:26; Stop 01/31 at 12:28; Status DC Dexamethasone Sodium Phosphate (Decadron) 20 mg STK-MED ONCE .ROUTE ; Start 01/31 at 12:26; Stop 05/25/18 at 12:28; Status DC Lidocaine HCl (Lidocaine Pf 2% Vial) 5 ml STK-MED ONCE .ROUTE ; Start 05/25/18 at 12:26; Stop 05/25/18 at 12:28; Status DC Ondansetron HCl (Zofran) 4 mg STK-MED ONCE .ROUTE ; Start 05/25/18 at 12:26; Stop 05/25/18 at 12:28; Status DC Fentanyl Citrate (Fentanyl 2ml Vial) 100 mcg STK-MED ONCE .ROUTE ; Start at 12:26; Stop 05/25/18 at 12:28; Status DC Cefazolin Sodium/ Dextrose 50 ml @ 100 mls/hr 1X ONCE IV Last administered on 05/25/18at 13:48; Start 05/25/18 at 13:30; Stop 05/25/18 at 13:59; Status DC Phenylephrine HCl (Sebastián-Synephrine Inj) 10 mg STK-MED ONCE .ROUTE ; Start at 13:49; Stop 05/25/18 at 13:51; Status DC Bupivacaine HCl (Sensorcaine Mpf 0.5%) 30 ml STK-MED ONCE .ROUTE Last administered on 05/25/18at 14:01; Start 05/25/18 at 14:05; Stop 05/25/18 at 14:07 ; Status DC Sevoflurane (Ultane) 30 ml STK-MED ONCE IH ; Start 05/25/18 at 14:26; Stop 05/25 at 14:28; Status DC Hydralazine HCl (Apresoline Inj) 10 mg PRN Q6HRS PRN IVP ELEVATED BP, SEE COMMENTS Last administered on 05/26/18at 08:41; Start 05/25/18 at 16:15 Vital Signs Vital Signs Date Time Temp Pulse Resp B/P (MAP) Pulse Ox O2 Delivery O2 Flow Rate FiO2 05/26/18 11:00 98.2 104 18 140/73 (95) 98 Room Air 98.2 05/25/18 14:42 10 Labs Laboratory Tests Test 05/24/18 23:50 05/26/18 04:00 White Blood Count 8.7 x10^3/uL (4.0-11.0) 5.8 x10^3/uL (4.0-11.0) Red Blood Count 4.07 x10^6/uL (4.30-5.70) 3.85 x10^6/uL (4.30-5.70) Hemoglobin 12.3 g/dL (13.0-17.5) 11.4 g/dL (13.0-17.5) Hematocrit 37.0 % (39.0-53.0) 35.0 % (39.0-53.0) Mean Corpuscular Volume 91 fL (79-100) 91 fL (79-100) Mean Corpuscular Hemoglobin 30 pg (25-35) 30 pg (25-35) Mean Corpuscular Hemoglobin Concent 33 g/dL (31-37) 33 g/dL (31-37) Red Cell Distribution Width 13.9 % (11.5-14.5) 13.8 % (11.5-14.5) Platelet Count 252 x10^3/uL (140-400) 249 x10^3/uL (140-400) Neutrophils (%) (Auto) 91 % (31-73) 87 % (31-73) Lymphocytes (%) (Auto) 6 % (24-48) 10 % (24-48) Monocytes (%) (Auto) 3 % (0-9) 3 % (0-9) Eosinophils (%) (Auto) 0 % (0-3) 0 % (0-3) Basophils (%) (Auto) 1 % (0-3) 0 % (0-3) Neutrophils # (Auto) 7.9 x10^3uL (1.8-7.7) 5.1 x10^3uL (1.8-7.7) Lymphocytes # (Auto) 0.5 x10^3/uL (1.0-4.8) 0.6 x10^3/uL (1.0-4.8) Monocytes # (Auto) 0.2 x10^3/uL (0.0-1.1) 0.2 x10^3/uL (0.0-1.1) Eosinophils # (Auto) 0.0 x10^3/uL (0.0-0.7) 0.0 x10^3/uL (0.0-0.7) Basophils # (Auto) 0.0 x10^3/uL (0.0-0.2) 0.0 x10^3/uL (0.0-0.2) Segmented Neutrophils % 83 % (35-66) Band Neutrophils % 8 % (0-9) Lymphocytes % 7 % (24-48) Monocytes % 2 % (0-10) Platelet Estimate Adequate (ADEQUATE) Prothrombin Time 12.7 SEC (11.7-14.0) Prothromb Time International Ratio 1.0 (0.8-1.1) Sodium Level 137 mmol/L (136-145) 140 mmol/L (136-145) Potassium Level 3.3 mmol/L (3.5-5.1) 3.7 mmol/L (3.5-5.1) Chloride Level 101 mmol/L (98-107) 102 mmol/L (98-107) Carbon Dioxide Level 29 mmol/L (21-32) 27 mmol/L (21-32) Anion Gap 7 (6-14) 11 (6-14) Blood Urea Nitrogen 16 mg/dL (8-26) 14 mg/dL (8-26) Creatinine 1.3 mg/dL (0.7-1.3) 1.3 mg/dL (0.7-1.3) Estimated GFR (Cockcroft-Gault) 65.8 65.8 Glucose Level 141 mg/dL (70-99) 155 mg/dL (70-99) Calcium Level 9.7 mg/dL (8.5-10.1) 8.8 mg/dL (8.5-10.1) Laboratory Tests Test 05/26/18 04:00 White Blood Count 5.8 x10^3/uL (4.0-11.0) Red Blood Count 3.85 x10^6/uL (4.30-5.70) Hemoglobin 11.4 g/dL (13.0-17.5) Hematocrit 35.0 % (39.0-53.0) Mean Corpuscular Volume 91 fL (79-100) Mean Corpuscular Hemoglobin 30 pg (25-35) Mean Corpuscular Hemoglobin Concent 33 g/dL (31-37) Red Cell Distribution Width 13.8 % (11.5-14.5) Platelet Count 249 x10^3/uL (140-400) Neutrophils (%) (Auto) 87 % (31-73) Lymphocytes (%) (Auto) 10 % (24-48) Monocytes (%) (Auto) 3 % (0-9) Eosinophils (%) (Auto) 0 % (0-3) Basophils (%) (Auto) 0 % (0-3) Neutrophils # (Auto) 5.1 x10^3uL (1.8-7.7) Lymphocytes # (Auto) 0.6 x10^3/uL (1.0-4.8) Monocytes # (Auto) 0.2 x10^3/uL (0.0-1.1) Eosinophils # (Auto) 0.0 x10^3/uL (0.0-0.7) Basophils # (Auto) 0.0 x10^3/uL (0.0-0.2) Sodium Level 140 mmol/L (136-145) Potassium Level 3.7 mmol/L (3.5-5.1) Chloride Level 102 mmol/L (98-107) Carbon Dioxide Level 27 mmol/L (21-32) Anion Gap 11 (6-14) Blood Urea Nitrogen 14 mg/dL (8-26) Creatinine 1.3 mg/dL (0.7-1.3) Estimated GFR (Cockcroft-Gault) 65.8 Glucose Level 155 mg/dL (70-99) Calcium Level 8.8 mg/dL (8.5-10.1) Allergies Allergies Coded Allergies Type Severity Reaction Last Updated Verified No Known Drug Allergies 05/24/18 No Disposition/Orders: D/C to Home w/ HH Patient Instructions D/C PLANNING 37 MIN CRYSTAL CORTES MD May 26, 2018 12:43
[2018-05-26] MEDS ORDERED: HYDR-2761 PO (12:45)
--- NOTE | 2018-05-26 12:48 | DISCH ---
DISCHARGE WITH HOME HEALTH DISCHARGE INFORMATION: Condition on Discharge: Stable CODE STATUS: Code Status: Full HOME HEALTH: Face to Face: I certify this patient is under my care and that I, or a nurse practitioner or physician's assistant professor of surgery working with me, had a face to face encounter that meets the physician face to face encounter requirements with this patient on []. Medical Complications: Falls Physical Therapy For: Evalulation/Treatment Occupational Therapy For: Evaluation/Treatment Speech Language Pathology For: Evaluation/Treatment Home Health Aide For: Self-care STAND UP COMEDIAN For: Community Resources Pt Meets Homebound Status: Poor coordination w/ amb. POST DISCHARGE ORDERS: DIET AFTER DISCHARGE: ADA TREATMENT/EQUIPMENT ORDERS: Adaptive Equipment Issued: Brace/splint CERTIFICATION STATEMENT: Certification Statement: Certification Statement: Based on the above finding, I certify that this patient is confined to the home and needs intermittent care home care, physical therapy and/or speech therapy, or continues to need occupational therapy.~ This patient is under my care, and I have initiated the establishment of the plan of care.~ This patient will be followed by myself or a community physician who will periodically review the plan of care. Home Meds Active Scripts Hydrocodone Bit/Acetaminophen (HYDROCODONE-APAP 5-325 ) 1 Tab Tablet, 1 TAB PO 1X for ARM PAIN for 10 Days, #20 TAB Prov:CRYSTAL CORTES MD 05/26/18 CRYSTAL CORTES MD May 26, 2018 12:48
--- NOTE | 2018-05-26 14:08 | NUR ---
SW following. RN advised Dr. Still put dc orders in for home with home health. Pt speaks Swahili or Amharic. Pt declining home health per RN. No further SW needs.
[2018-05-27 01:31] LABS: HEMOGLOBIN A1C 5.5 % (4.8-5.6)
== END 2018-05-26 14:15 | disposition home or self-care (01) | DRG 512 ==
LOC: ER 21:34 → 4 NORTH 05-25 01:03
PROVIDERS: ADMIT Internal Medicine; ATTEND Internal Medicine
PROC: 0PSH04Z Reposition Right Radius with Internal Fixation Device, Open Approach (ICD-10-PCS; principal; 2018-05-25 12:30)
DX: S52.501A Unspecified fracture of the lower end of right radius, initial encounter for closed fracture (principal); I10 Essential (primary) hypertension; E89.0 Postprocedural hypothyroidism; W00.0XXA Fall on same level due to ice and snow, initial encounter; Y93.89 Activity, other specified; Y92.89 Other specified places as the place of occurrence of the external cause; Y99.8 Other external cause status; Z82.49 Family history of ischemic heart disease and other diseases of the circulatory system
CPT/HCPCS: 29125; 36415; 73090; 73110; 80048; 83036; 85007; 85025; 85610; A7015; C1713; J0360; J0696; J1100; J2001; J2270; J2405; J2704; J3010; J3490; 97530; 99285-25; G0378

== ENCOUNTER 2019-11-16 09:40 | Emergency (ER) | payer OTHER ==
[~2019-11-16] VITALS: Ht 180.3 cm; Wt 70.0 kg
[~2019-11-16 09:40] MED LIST: HYDR-2761 PO
[2019-11-16 10:00] VITALS: BP 140/80
[2019-11-16] MEDS ORDERED: HYDROcodone/APAP 5/325MG 1 TAB TABLET PO ONE (10:15)
--- NOTE | 2019-11-16 10:15 | PHYS DOC ---
Past Medical History Past Medical History: No Pertinent History Past Surgical History: Other Additional Past Surgical Histo: THYROIDECTOMY Smoking Status: Never Smoker Alcohol Use: None Drug Use: None General Adult EDM: Chief Complaint: HIP PAIN HPI: HPI: The history was obtained from the patient. Son was used as site surveyor at bedside with permission from patient and son. Patient is a 74-year-old male with PMH hypertension who presents with a chief complaint of right hip pain. Patient states he has had gradual onset right lateral hip pain over the past week. He states the pain starts in the lateral aspect of his right hip and radiates down the front and back of his right thigh. He does note some associated tingling sensation. He denies any weakness. He states ambulating seems to make the discomfort worse. Has not tried any medicine at home. He denies any urinary symptoms including dysuria or hematuria. Denies any low back pain. He denies any syncope. Denies any swelling to the lower extremities bilaterally. Denies any recent travel. Denies any overlying skin changes. Denies any history of joint replacement. Denies any history of peripheral arterial disease or vascular disease. Denies any history of blood clot. Denies any trauma or injury. States that he does wear tight fitting belts around his waist regularly. Patient denies any history of immobilization greater than 48 hours, recent hospitalizations, recent surgery, recent trauma, , oral contraceptive usage, hormone replacement therapy, air travel greater than 8 hours, recent infectious disease, or general deterioration of their overall condition. Review of Systems: Review of Systems: Constitutional: Denies fever or chills. [] Eyes: Denies change in visual acuity. [] HENT: Denies nasal congestion or sore throat. [] Respiratory: Denies cough or shortness of breath. [] Cardiovascular: Denies chest pain or edema. [] GI: Denies abdominal pain, nausea, vomiting, bloody stools or diarrhea. [] : Denies dysuria. [] Musculoskeletal: Positive for hip pain Integument: Denies rash. [] Neurologic: Denies headache, focal weakness or sensory changes. [] Endocrine: Denies polyuria or polydipsia. [] Lymphatic: Denies swollen glands. [] Psychiatric: Denies depression or anxiety. [] Heart Score: Risk Factors: Risk Factors: DM, Current or recent (<one month) smoker, HTN, HLP, family history of CAD, obesity. Risk Scores: Score 0 - 3: 2.5% MACE over next 6 weeks - Discharge Home Score 4 - 6: 20.3% MACE over next 6 weeks - Admit for Clinical Observation Score 7 - 10: 72.7% MACE over next 6 weeks - Early Invasive Strategies Allergies: Allergies: Allergies Coded Allergies Type Severity Reaction Last Updated Verified No Known Drug Allergies 05/24/18 No Physical Exam: PE: Constitutional: Well developed, well nourished, no acute distress, non-toxic appearance. [] HENT: Normocephalic, atraumatic, bilateral external ears normal, oropharynx moist, no oral exudates, nose normal. [] Eyes: PERRLA, EOMI, conjunctiva normal, no discharge. [] Neck: Normal range of motion, no tenderness, supple, no stridor. [] Cardiovascular:Heart rate regular rhythm, no murmur [] Lungs & Thorax: Bilateral breath sounds clear to auscultation [] Abdomen: Bowel sounds normal, soft, no tenderness, no masses, no pulsatile masses. [] Skin: Warm, dry, no erythema, no rash. [] Back: + 5/5 motor strength in dorsiflexion and plantarflexion of the great toes bilaterally. Sensation intact between the webbing of the first and second toes bilaterally. Extremities: Neurologic: Alert and oriented X 3, normal motor function, normal sensory function, no focal deficits noted. [] Psychologic: Affect normal, judgement normal, mood normal. [] Current Patient Data: Vital Signs: Vital Signs Date Time Temp Pulse Resp B/P (MAP) Pulse Ox O2 Delivery O2 Flow Rate FiO2 11/16/19 10:00 98.0 59 18 140/80 (100) 98 Room Air 98.0 EKG: EKG: [] Radiology/Procedures: Radiology/Procedures: [][facility] [address] [place], [place] [id number] IMAGING REPORT Signed PATIENT: REZA SALAMANCA ACCOUNT: [id number] : 1945 LOCATION: ER AGE: 74 SEX: M EXAM STATUS: REG ER ORD. PHYSICIAN: KALYAN LISA DO REASON: atraumatic r hip pain PROCEDURE: HIP RIGHT 2V WITH PELVIS HIP RIGHT 2V WITH PELVIS History: Reason: atraumatic r hip pain / Spl. Instructions: / History: Technique: AP view the pelvis and 2 additional views of the right hip. Comparison: None. Findings: Normal alignment of the hips. No fracture. Mild right hip DJD. Lower lumbar spondylosis. Impression: 1. No acute osseous abnormality. 2. Mild right hip DJD. Electronically signed by: Cameron Dixon DO (11/16/2019 10:44 AM) [id number] DICTATED and SIGNED BY: CAMERON DIXON DO DATE: 11/16/19 1044 Course & Med Decision Making: Course & Med Decision Making Pertinent Labs and Imaging studies reviewed. (See chart for details) Patient is a well-appearing 74-year-old male who presents with chief complaint of right lateral hip discomfort. Initial vital signs unremarkable. Physical exam noted above. Plain film imaging reveals no acute osseous abnormality. Low suspicion for vascular etiology as patient does have strong DP pulses bilaterally. No unilateral leg swelling or risk factors for DVT. Patient symptoms could be related to degenerative disc disease at the site of the right hip. Also, patient may be experiencing meralgia paresthetica given the location of discomfort with tight fitting well. Overall low suspicion for emergent etiology. Has been ambulatory in emergency department without difficulty. He does state he has an appoint with his PCP in 1 week. I encouraged him to continue to use anti-inflammatories. Return precautions discussed and unde rstood. Patient is agreeable to discharge home. Lazaro Disclaimer: Lazaro Disclaimer: This electronic medical record was generated, in whole or in part, using a voice recognition dictation system. Departure Departure Disposition: 01 HOME, SELF-CARE Condition: GOOD Referrals: UNKNOWN PCP NAME (PCP) Patient Instructions: Hip Bursitis Scripts Ibuprofen (IBUPROFEN) 600 Mg Tablet 600 MG PO PRN Q6HRS PRN for PAIN, #20 TAB take with food or milk Prov: KALYAN LISA DO 11/16/19 Justicifation of Admission Dx: Justifications for Admission: Justification of Admission Dx: N/A KALYAN LISA DO Nov 16, 2019 10:15
--- NOTE | 2019-11-16 10:47 | RAD ---
HIP RIGHT 2V WITH PELVIS History: Reason: atraumatic r hip pain / Spl. Instructions: / History: Technique: AP view the pelvis and 2 additional views of the right hip. Comparison: None. Findings: Normal alignment of the hips. No fracture. Mild right hip DJD. Lower lumbar spondylosis. Impression: 1. No acute osseous abnormality. 2. Mild right hip DJD. Electronically signed by: Cameron Dixon DO (11/16/2019 10:44 AM) [id number]
[2019-11-16] MEDS ORDERED: IBUP-1007 PO (10:56)
== END 2019-11-16 11:05 | disposition home or self-care (01) ==
LOC: ER 09:40
DX: M25.551 Pain in right hip (principal); R20.2 Paresthesia of skin; Z90.89 Acquired absence of other organs; Z98.890 Other specified postprocedural states
CPT/HCPCS: 73502; 99283

== ENCOUNTER 2021-02-13 14:05 | Inpatient (IN) | payer OTHER ==
[~2021-02-13] VITALS: Ht 177.8 cm; Wt 75.7 kg
[~2021-02-13 14:05] MED LIST changes: +IBUP-1007 PO
--- NOTE | 2021-02-13 15:39 | RAD ---
CT HEAD AND C-SPINE WO Clinical indications: Fall. Head injury. Neck pain. NONCONTRAST HEAD CT Technique: Noncontrast axial cross sectional scanning of the head was performed. PQRS compliance Statement One or more of the following individualized dose reduction techniques were utilized for this study: 1. Automated exposure control 2. Adjustment of the mA and/or kV according to patient size 3. Use of iterative reconstruction technique COMPARISON: None available. Findings: There is a subacute right frontal and parietal subdural hematoma which measures 9 mm in thi ckness. There are small pockets of more acute hyperdense hemorrhage within the subdural fluid collect ion. There is adjacent sulci effacement. No midline shift or ventricular effacement is seen. No hydro cephalus is seen. No focal hypodense area or sulci effacement is seen to indicate an acute infarct or edema radiographically. No skull fracture or pneumocephalus is seen. No opacification of the mastoi d sinuses or the middle ear cavities or the paranasal sinuses is seen. The maxillary sinuses are not completely seen in this study. Old posttraumatic or postsurgical change of the globe of the left orbi t is seen. IMPRESSION: Subacute right frontal and parietal subdural hematoma with small areas of acute hyperdens e blood within the fluid collection. There is adjacent sulci effacement. CERVICAL SPINE CT WITHOUT CONTRAST TECHNIQUE: Noncontrast helical CT scanning of the cervical spine was performed. Multiplanar 2-D recon structions were generated. FINDINGS: No acute fracture or discitis or lytic process is evident. No perching of facet joints is a pparent. There is a prominent degenerative cyst of the right C5 inferior facet. Degenerative facet ar thropathy is evident. No perching of facet joints is evident. The spinous processes are intact. There is mild retrolisthesis of C5-6. There is degenerative endplate spurring at this level. There is mild disc protrusions at C2-3 down through C5-6. There is streaking artifact of the cervical spinal canal which makes evaluation of the spinal canal difficult. No tight spinal canal stenosis is evident. IMPRESSION: No acute fracture. Degenerative cervical spondylosis. Electronically signed by: Antelmo Coello MD (02/13/2021 3:37 PM) [id number]
--- NOTE | 2021-02-13 15:54 | RAD ---
CT STUDY OF THE RIGHT HIP WITHOUT CONTRAST Clinical indications: Fall. Right hip pain. TECHNIQUE: Noncontrast helical CT scanning of the right hip was performed. Multiplanar 2-D reconstruc tions were generated in all 3 planes. PQRS compliance Statement One or more of the following individualized dose reduction techniques were utilized for this study: 1. Automated exposure control 2. Adjustment of the mA and/or kV according to patient size 3. Use of iterative reconstruction technique FINDINGS: No acute fracture or dislocation or lytic process is seen. There is severe joint space narr owing with riha-af-qtfe interface of the superior lateral aspect of the right hip joint with prominen t subchondral cyst formation and subchondral sclerosis and moderate spurring of the right hip joint. Findings are consistent with severe primary degenerative osteoarthritis of the right hip joint. No hines bchondral fracture is evident. There is a small loose body within the anterior superior aspect of the right hip joint measuring 8 mm in size. There is a small punctate loose body within the posterior ce ntral aspect of the right hip joint. There is a small punctate loose body within a bilobed iliopsoas bursa. The iliopsoas bursa measures 4.5 cm in greatest vertical dimension. A right inguinal hernia is seen containing only fat. No soft tissue mass or hematoma is evident. IMPRESSION: No acute fracture. Severe primary degenerative osteoarthritis of the right hip joint with hfil-iv-rytw interface of the superior-lateral aspect of the right hip joint. Small loose bodies are evident. Iliopsoas bursitis. Electronically signed by: Antelmo Coello MD (02/13/2021 3:52 PM) [id number]
--- NOTE | 2021-02-13 16:16 | PHYS DOC ---
Past Medical History Past Medical History: No Pertinent History, Hypertension Past Surgical History: Other Additional Past Surgical Histo: RT WRIST, EYE SURG?, NECK? 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 Patient states symptoms are worse when he is laying on the right side of the head. Patient is also complaining of 10 out of 10 right hip pain, symptoms for 1 year. Patient denies any trauma. He states he is on blood pressure medicine as well as an aspirin and ibuprofen. Patient is Swahili speaking and interpretation was provided by wi PCP Jasmin and [facility] clinic Review of Systems: Review of Systems: Constitutional: Denies fever or chills. [] Eyes: Denies change in visual acuity. [] HENT: Denies nasal congestion or sore throat. [] Respiratory: Denies cough or shortness of breath. [] Cardiovascular: Denies chest pain or edema. [] GI: Denies abdominal pain, nausea, vomiting, bloody stools or diarrhea. [] : Denies dysuria. [] Musculoskeletal: Reports right neck pain. Reports right hip pain. Denies back pain Integument: Denies rash. [] Neurologic: Reports right-sided head pain, focal weakness or sensory changes. [] Psychiatric: Denies depression or anxiety. [] Heart Score: C/O Chest Pain: N/A Risk Factors: Risk Factors: DM, Current or recent (<one month) smoker, HTN, HLP, family history of CAD, obesity. Risk Scores: Score 0 - 3: 2.5% MACE over next 6 weeks - Discharge Home Score 4 - 6: 20.3% MACE over next 6 weeks - Admit for Clinical Observation Score 7 - 10: 72.7% MACE over next 6 weeks - Early Invasive Strategies Allergies: Allergies: Allergies Coded Allergies Type Severity Reaction Last Updated Verified No Known Drug Allergies 05/24/18 No Physical Exam: PE: Constitutional: Well developed, well nourished, no acute distress, non-toxic appearance. [] HENT: Normocephalic, atraumatic, bilateral external ears normal, oropharynx moist, no oral exudates, nose normal. [] Eyes: PERRLA-right eye, EOMI-right eye, conjunctiva normal, no discharge. [] Neck: Normal range of motion, no tenderness, supple, no stridor. [] Cardiovascular:Heart rate regular rhythm, no murmur [] Lungs & Thorax: Bilateral breath sounds clear to auscultation [] Abdomen: Bowel sounds normal, soft, no tenderness, no masses, no pulsatile masses. [] Skin: Warm, dry, no erythema, no rash. [] Back: No tenderness, no CVA tenderness. [] Extremities: Tenderness on palpation of the right iliopsoas region of the right side. Limited range of motion to the right hip due to pain. +2 right pedal pulse. Cap refill less than 2 seconds the right lower extremity, sensation intact Neurologic: Alert and oriented X 3, normal motor function, normal sensory function, no focal deficits noted. Cranial nerves II through XII intact Psychologic: Affect normal, judgement normal, mood normal. [] EKG: EKG: [] Radiology/Procedures: Radiology/Procedures: []PROCEDURE: CT LOWER EXTREMITY WO RIGHT CT STUDY OF THE RIGHT HIP WITHOUT CONTRAST Clinical indications: Fall. Right hip pain. TECHNIQUE: Noncontrast helical CT scanning of the right hip was performed. Multiplanar 2-D reconstructions were generated in all 3 planes. PQRS compliance Statement One or more of the following individualized dose reduction techniques were utilized for this study: 1. Automated exposure control 2. Adjustment of the mA and/or kV according to patient size 3. Use of iterative reconstruction technique FINDINGS: No acute fracture or dislocation or lytic process is seen. There is severe joint space narrowing with ofoz-jo-fuzc interface of the superior lateral aspect of the right hip joint with prominent subchondral cyst formation and s ubchondral sclerosis and moderate spurring of the right hip joint. Findings are consistent with severe primary degenerative osteoarthritis of the right hip joint. No subchondral fracture is evident. There is a small loose body within the anterior superior aspect of the right hip joint measuring 8 mm in size. There is a small punctate loose body within the posterior central aspect of the right hip joint. There is a small punctate loose body within a bilobed iliopsoas bursa. The iliopsoas bursa measures 4.5 cm in greatest vertical dimension. A right inguinal hernia is seen containing only fat. No soft tissue mass or hematoma is evident. IMPRESSION: No acute fracture. Severe primary degenerative osteoarthritis of the right hip joint with hwme-tp-huru interface of the superior-lateral aspect of the right hip joint. Small loose bodies are evident. Iliopsoas bursitis. Electronically signed by: Dewey Coello MD (02/13/2021 3:52 PM) [id number] DICTATED and SIGNED BY: DEWEY COELLO MD DATE: 02/13/21 [id number] 0 PROCEDURE: CT HEAD AND CERVICAL SPINE WO CT HEAD AND C-SPINE WO Clinical indications: Fall. Head injury. Neck pain. NONCONTRAST HEAD CT Technique: Noncontrast axial cross sectional scanning of the head was performed. PQRS compliance Statement One or more of the following individualized dose reduction techniques were uti lized for this study: 1. Automated exposure control 2. Adjustment of the mA and/or kV according to patient size 3. Use of iterative reconstruction technique COMPARISON: None available. Findings: There is a subacute right frontal and parietal subdural hematoma which measures 9 mm in thickness. There are small pockets of more acute hyperdense hemorrhage within the subdural fluid collection. There is adjacent sulci effacement. No midline shift or ventricular effacement is seen. No hydrocephalus is seen. No focal hypodense area or sulci effacement is seen to indicate an acute infarct or edema radiographically. No skull fracture or pneumocephalus is seen. No opacification of the mastoid sinuses or the middle ear cavities or the paranasal sinuses is seen. The maxillary sinuses are not completely seen in this study. Old posttraumatic or postsurgical change of the globe of the left or bit is seen. IMPRESSION: Subacute right frontal and parietal subdural hematoma with small areas of acute hyperdense blood within the fluid collection. There is adjacent sulci effacement. CERVICAL SPINE CT WITHOUT CONTRAST TECHNIQUE: Noncontrast helical CT scanning of the cervical spine was performed. Multiplanar 2-D reconstructions were generated. FINDINGS: No acute fracture or discitis or lytic process is evident. No perching of facet joints is apparent. There is a prominent degenerative cyst of the ri ght C5 inferior facet. Degenerative facet arthropathy is evident. No perching of facet joints is evident. The spinous processes are intact. There is mild retrolisthesis of C5-6. There is degenerative endplate spurring at this level. There is mild disc protrusions at C2-3 down through C5-6. There is streaking artifact of the cervical spinal canal which makes evaluation of the spinal canal difficult. No tight spinal canal stenosis is evident. IMPRESSION: No acute fracture. Degenerative cervical spondylosis. Electronically signed by: Dewey Coello MD (02/13/2021 3:37 PM) [id number] DICTATED and SIGNED BY: DEWEY COELLO MD DATE: 02/13/21 [id number] 0 Course & Med Decision Making: Course & Med Decision Making Pertinent Labs and Imaging studies reviewed. (See chart for details) This is a 75-year-old male patient presenting to the ED today complaining of right-sided headache, neck pain for 1 week as well as right hip pain for [address] of the head was noted for subdural hematoma, no midline shift. Patient has no injuries. Neurological exam is negative. Right hip x-rays noted for severe DJD of the right hip and Illiopsoa bursitis. NIHSS is 0 Spoke with Kim WILLIS for Dr. Foster neurosurgeon, requested we admit patient to ICU. Spoke with Dr. Hernandez who accepted patient for admission Dragon Disclaimer: Lazaro Disclaimer: This electronic medical record was generated, in whole or in part, using a voice recognition dictation system. Departure Departure Impression: Primary Impression: Subdural hematoma Additional Impressions: Degenerative joint disease of right hip Qualified Codes: M16.11 - Unilateral primary osteoarthritis, right hip DJD (degenerative joint disease) of cervical spine Qualified Codes: M47.812 - Spondylosis without myelopathy or radiculopathy, cervical region Hypertension Qualified Codes: I10 - Essential (primary) hypertension Disposition: ADMITTED INPATIENT Condition: STABLE Referrals: UNKNOWN PCP NAME (PCP) NIHSS Stroke Scale NIH Stroke Scale: NIH Stroke Scale Response (Comments) Value Level of Consciousness: 0 Alert/Responsive 0 LOC Questions: 0 Answers both correctly 0 LOC Commands: 0 Performs both tasks 0 Best Gaze: 0 Normal 0 Visual: 0 No visual loss 0 Facial Palsy: 0 Normal, symmetrical 0 Motor - Left Arm 0 No drift 0 Motor - Right Arm 0 No drift 0 Motor - Left Leg 0 No drift 0 Motor: Right Leg 0 No drift 0 Limb Ataxia: 0 Absent 0 Sensory: 0 No loss 0 Best Language: 0 Normal 0 Dysathria: 0 Normal 0 Extinction and Inattention: 0 Normal (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
[2021-02-13] MEDS ORDERED: MORPHINE SULFATE 2 MG/ML INJ. IVP PRN (18:00)
[2021-02-13] MEDS ORDERED: ONDANSETRON PF 4 MG/2 ML VIAL. IVP PRN (18:00)
[2021-02-13] MEDS ORDERED: ACETAMINOPHEN 325 MG TABLET. PO PRN (18:00)
[2021-02-13] MEDS ORDERED: MORPHINE SULFATE 2 MG/ML INJ. IV/SQ PRN (18:00)
[2021-02-13 19:00] LABS: PROTHROMBIN TIME PATIENT 12.9 SEC (11.7-14.0)
[2021-02-13 19:33] LABS: BASO % 1 % (0-3); EOS # 0.1 x10^3/uL (0.0-0.7); EOS % 2 % (0-3); HEMATOCRIT 33.9 % (39.0-53.0); HEMOGLOBIN 11.2 g/dL (13.0-17.5); LYMPH # 1.2 x10^3/uL (1.0-4.8); LYMPH % 29 % (24-48); MEAN CORPUSCULAR HEMOGLOBIN 30 pg (25-35); MEAN CORPUSCULAR HGB CONC 33 g/dL (31-37); MEAN CORPUSCULAR VOLUME 90 fL (79-100); MONO # 0.3 x10^3/uL (0.0-1.1); MONO % 8 % (0-9); NEUT # 2.5 x10^3/uL (1.8-7.7); NEUT % 61 % (31-73); PLATELET COUNT 200 x10^3/uL (140-400); RED BLOOD COUNT 3.78 x10^6/uL (4.30-5.70); RED CELL DISTRIBUTION WIDTH 13.6 % (11.5-14.5); WHITE BLOOD COUNT 4.2 x10^3/uL (4.0-11.0)
[2021-02-13 19:50] LABS: CALCIUM 8.5 mg/dL (8.5-10.1); CREATININE 1.1 mg/dL (0.7-1.3); GFR 65.6; POTASSIUM 3.2 mmol/L (3.5-5.1)
[2021-02-13 19:55] LABS: ALBUMIN 3.4 g/dL (3.4-5.0); ALBUMIN/GLOBULIN RATIO 0.8 (1.0-1.7); TOTAL BILIRUBIN 0.5 mg/dL (0.2-1.0); TOTAL PROTEIN 7.5 g/dL (6.4-8.2)
[2021-02-13 23:30] VITALS: BP 142/86
[2021-02-13 23:45] VITALS: BP 148/83
--- NOTE | 2021-02-13 23:54 | HP ---
DATE OF SERVICE: 02/13/2021 ADMIT DATE: 02/13/2021 CHIEF COMPLAINT: Neck pain, hip pain. HISTORY OF PRESENT ILLNESS: The patient is a pleasant 75-year-old male who is originally from the country of [facility]. He then was moved to the country of [place] where he has lived as a refugee. He is now here in the [facility] and has some chronic hip pain. He came in today to have that evaluated, but he also had a headache. The ER doctor ordered a CAT scan of the brain and he does have a 9 mm subdural hematoma. I discussed the case with ER physician. We are going to admit the patient and consult Neurosurgery. PAST MEDICAL HISTORY: Right wrist surgery, eye surgery, he is blind in the left eye, neck surgery, hypertension, degenerative joint disease. ALLERGIES: None. FAMILY HISTORY: Diabetes. SOCIAL HISTORY: He does not drink, smoke or take drugs. He is from the country of [facility], but he is a refugee and was living in the country of [place]. 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 MEDICATIONS: Reviewed, please refer to the MRAD. REVIEW OF SYSTEMS: GENERAL: No history of weight change, weakness or fevers. SKIN: No bruising, hair changes or rashes. EYES: No blurred, double or loss of vision. NOSE AND THROAT: No history of nosebleeds, hoarseness or sore throat. HEART: No history of palpitations, chest pain or shortness of breath on exertion. LUNGS: Denies cough, hemoptysis, wheezing or shortness of breath. GASTROINTESTINAL: Denies changes in appetite, nausea, vomiting, diarrhea or constipation. GENITOURINARY: No history of frequency, urgency, hesitancy or nocturia. NEUROLOGIC: He complains of headache. PSYCHIATRIC: No history of panic, anxiety or depression. ENDOCRINE: No history of heat or cold intolerance, polyuria or polydipsia. EXTREMITIES: He complains of hip pain. PHYSICAL EXAMINATION: VITALS: Within normal limits and are stable. GENERAL: No apparent distress. Alert and oriented. HEENT: Normal cephalic atraumatic, external auditory canals are patent. EYES: Extraocular muscles are intact, pupils are equally round and reactive to light and accommodation. MUSCULOSKELETAL: Well developed, well nourished, good range of motion. ENDOCRINE: No thyromegaly was palpated. LYMPHATICS: No cervical chain or axillary nodes were noted. HEMATOPOIETIC: No bruising. NECK: Supple, no JVD, no thyromegaly was noted. LUNGS: Clear to auscultation in all lung [place] without rhonchi or wheezing. HEART: RRR, S1, S2 present. Peripheral pulses intact, no obvious murmurs were noted. ABDOMEN: Soft, nontender. Positive bowel sounds no organomegaly, normal bowel sounds. EXTREMITIES: Without any cyanosis, clubbing, or edema. Pedal pulses intact, Homans sign is negative. NEUROLOGIC: Normal speech, normal tone. A and O x 3, moves all extremities, no obvious focal deficits. PSYCHIATRIC: Normal affect, normal mood. Stable. SKIN: No ulcerations or rashes, good skin turgor, no jaundice. VASCULAR: Good capillary refill, neurovascular bundle appears to be intact. ASSESSMENT AND PLAN: Subdural hematoma in an elderly male with the above noted comorbidities. The patient is being admitted. We will consult Neurosurgery. Home meds. Deep venous thrombosis prophylaxis. Full code. P.r.n. pain meds. We have asked the family to get us his home meds and we will try to resume those. Consult Orthopedics regarding the . ANA/SHAD/RAQUEL DR: ANA/mary TID: [id number]
[2021-02-14] VITALS (19 sets, daily range): BP systolic 133–162; BP diastolic 76–93
--- NOTE | 2021-02-14 04:57 | EKG ---
[facility] [address] [place] [address] Test Date: 2021-02-13 Test Time: 19:20:32 Pat Name: REZA SALAMANCA Department: Room: 110 1 Gender: M Abstract Writer: : 1945 Requested By: DINAH BUTTERFIELD Order Number: [id number] Reading MD: Ayush Rico Measurements Intervals [place] Rate: 68 P: 45 ID: [id number] QRS: -1 QRSD: 84 T: 31 QT: 400 QTc: 430 Interpretive Statements SINUS RHYTHM Electronically Signed On 02-20-2021 10:41:04 GUILLOTINE OPERATOR by Ayush Rico
[2021-02-14] MEDS ORDERED: LISI-130 PO (10:07)
[2021-02-14] MEDS ORDERED: PROP20TA PO (10:07)
[2021-02-14] MEDS ORDERED: METF500T16 PO (10:07)
[2021-02-14] MEDS ORDERED: AMLO-186 PO (10:07)
[2021-02-14] MEDS ORDERED: ATOR40TA59 PO (10:07)
--- NOTE | 2021-02-14 10:44 | RAD ---
Axial CT images of the head were obtained without IV contrast. Comparison: 02/13/2021. Indication: Follow-up subdural hematoma Findings: Persistent right-sided extra-axial fluid collection is seen and appears hypodense and stable compared to the prior examination. Small focus of hyperdensity is reidentified as well. No significant midlin e shift.. The ventricles are not enlarged or effaced. No bony or soft tissue abnormality is seen. The visualized paranasal sinuses are clear. Impression: 1. Stable subacute right subdural hematoma. Persistent mild effacement of sulci without significant m idline shift. Exposure: One or more of the following individualized dose reduction techniques were utilized for thi s examination: 1. Automated exposure control 2. Adjustment of the mA and/or kV according to patient size 3. Use of iterative reconstruction technique Electronically signed by: Gerald Rizzo MD (02/14/2021 10:41 AM) [id number]
[2021-02-14] MEDS ORDERED: MORPHINE SULFATE 2 MG/ML INJ. IVP ONE (13:30)
--- NOTE | 2021-02-14 15:33 | NUR ---
SS following for discharge planning. SS reviewed pt chart and discussed with pt RN. Pt is from home and is currently on room air. COVID19 negative. Ortho and Kristin consulted. SS will continue to follow for discharge planning.
--- NOTE | 2021-02-14 16:20 | PDOC ---
[facility] PROGRESS NOTE Date of Service DOS: DATE: 02/14/21 TIME: 16:17 Chief Complaint Chief Complaint Subdural hematoma in an elderly male with the above noted comorbidities. The patient is being admitted. We will consult Neurosurgery. Home meds. Deep venous thrombosis prophylaxis. Full code. P.r.n. pain meds. We have asked the family to get us his home meds and we will try to resume those. Hold home ibuprofen given subdural hematoma History of Present Illness History of Present Illness The patient is a pleasant 75-year-old male who is originally from the country of [facility]. He then was moved to the country of [facility] where he has lived as a refugee. He is now here in the [facility] and has some chronic hip pain. He came in today to have that evaluated, but he also had a headache. The ER doctor ordered a CAT scan of the brain and he does have a 9 mm subdural hematoma. I discussed the case with ER physician. We are going to admit the patient and consult Neurosurgery 02/14 Patient evaluated and examined at bedside. Was complaining still of quite a bit of headache. CT scan repeated and shows stable hematoma. Neurosurgery followin g. Home meds resumed today. Continue to monitor in ICU Vitals/I&O Vitals/I&O: Vital Signs Date Time Temp Pulse Resp B/P (MAP) Pulse Ox O2 Delivery O2 Flow Rate FiO2 02/14/21 15:00 74 16 133/80 (97) 98 Room Air 02/14/21 12:00 98.3 98.3 I & O 02/13/21 02/13/21 02/14/21 15:00 23:00 07:00 Output Total 400 ml Balance -400 ml Physical Exam General: Alert, Oriented X3, Cooperative Lungs: Clear Abdomen: Normal bowel sounds, Soft, No tenderness Extremities: No edema, Normal pulses Skin: No significant lesion Labs Labs: Laboratory Tests Test 02/13/21 18:42 02/13/21 19:15 02/13/21 19:29 02/13/21 22:45 Prothrombin Time 12.9 SEC (11.7-14.0) Prothromb Time International Ratio 1.0 (0.8-1.1) Activated Partial Thromboplast Time 24 SEC (24-38) SARS-CoV-2 RNA (JAMIE) Negative (Negative) SARS-CoV-2 Antigen (Rapid) Negative (NEGATIVE) White Blood Count 4.2 x10^3/uL (4.0-11.0) Red Blood Count 3.78 x10^6/uL (4.30-5.70) Hemoglobin 11.2 g/dL (13.0-17.5) Hematocrit 33.9 % (39.0-53.0) Mean Corpuscular Volume 90 fL (79-100) Mean Corpuscular Hemoglobin 30 pg (25-35) Mean Corpuscular Hemoglobin Concent 33 g/dL (31-37) Red Cell Distribution Width 13.6 % (11.5-14.5) Platelet Count 200 x10^3/uL (140-400) Neutrophils (%) (Auto) 61 % (31-73) Lymphocytes (%) (Auto) 29 % (24-48) Monocytes (%) (Auto) 8 % (0-9) Eosinophils (%) (Auto) 2 % (0-3) Basophils (%) (Auto) 1 % (0-3) Neutrophils # (Auto) 2.5 x10^3/uL (1.8-7.7) Lymphocytes # (Auto) 1.2 x10^3/uL (1.0-4.8) Monocytes # (Auto) 0.3 x10^3/uL (0.0-1.1) Eosinophils # (Auto) 0.1 x10^3/uL (0.0-0.7) Basophils # (Auto) 0.0 x10^3/uL (0.0-0.2) Sodium Level 144 mmol/L (136-145) Potassium Level 3.2 mmol/L (3.5-5.1) Chloride Level 104 mmol/L (98-107) Carbon Dioxide Level 29 mmol/L (21-32) Anion Gap 11 (6-14) Blood Urea Nitrogen 11 mg/dL (8-26) Creatinine 1.1 mg/dL (0.7-1.3) Estimated GFR (Cockcroft-Gault) 65.6 BUN/Creatinine Ratio 10 (6-20) Glucose Level 91 mg/dL (70-99) Calcium Level 8.5 mg/dL (8.5-10.1) Magnesium Level 2.0 mg/dL (1.8-2.4) Total Bilirubin 0.5 mg/dL (0.2-1.0) Aspartate Amino Transf (AST/SGOT) 12 U/L (15-37) Alanine Aminotransferase (ALT/SGPT) 16 U/L (16-63) Alkaline Phosphatase 102 U/L (46-116) Troponin I High Sensitivity 8 ng/L (4-75) 8 ng/L (4-75) JO-Gbe-J-Type Natriuretic Peptide 107 pg/mL (0-124) Total Protein 7.5 g/dL (6.4-8.2) Albumin 3.4 g/dL (3.4-5.0) Albumin/Globulin Ratio 0.8 (1.0-1.7) Test 02/14/21 01:45 Troponin I High Sensitivity 7 ng/L (4-75) Assessment and Plan Assessmemt and Plan Problems Medical Problems: (1) Degenerative joint disease of right hip Status: Acute (2) DJD (degenerative joint disease) of cervical spine Status: Acute (3) Hypertension Status: Acute (4) Subdural hematoma Status: Acute Comment Review of Relevant I have reviewed the following items paulo (where applicable) has been applied. Medications: Current Medications Medications (Trade) Dose Ordered Sig/David Route PRN Reason Start Time Stop Time Status Last Admin Dose Admin Morphine Sulfate (Morphine Sulfate) 2 mg PRN Q2HR PRN IVP PAIN 02/13/21 18:00 02/14/21 17:59 02/14/21 03:40 Morphine Sulfate (Morphine Sulfate) 2 mg 1X ONCE IVP 02/14/21 13:30 02/14/21 13:31 DC 02/14/21 13:24 Justifications for Admission Other Justification ZAIRA GUPTA MD Feb 14, 2021 16:20
[2021-02-14] MEDS ORDERED: oxyCODONE/APAP 5/325 1 TAB TABLET PO PRN (16:30)
--- NOTE | 2021-02-14 16:38 | PDOC ---
Provider Note Date of Service: DATE: 02/14/21 TIME: 16:35 Provider Note seen and examined consulted for SDH sitting up in bed,mild headache neuro intact CT with subacute right subdural hematoma, stable on f/u scan, no shift okay to transfer to floor from my standpoint repeat CT head in AM d/w RN Justifications for Admission Other Justification MIRZA MONTOYA MD Feb 14, 2021 16:38
[2021-02-14] MEDS: oxyCODONE/APAP 5/325 1 TAB TABLET PO PRN (19:56)
[2021-02-15 02:24] VITALS: BP 141/93
[2021-02-15] MEDS: oxyCODONE/APAP 5/325 1 TAB TABLET PO PRN (06:44)
[2021-02-15 07:00] VITALS: BP 140/94
[2021-02-15] MEDS ORDERED: metFORMIN XR 500 MG TAB.ER.24H PO SCH (08:00)
[2021-02-15] MEDS ORDERED: LISINOPRIL 20 MG TABLET PO SCH (09:00)
[2021-02-15] MEDS ORDERED: PROPRANOLOL 10 MG TABLET. PO SCH (09:00)
[2021-02-15] MEDS ORDERED: ATORVASTATIN CALCIUM 40 MG TABLET. PO SCH (09:00)
[2021-02-15 10:36] LABS: CALCIUM 8.9 mg/dL (8.5-10.1); CREATININE 1.1 mg/dL (0.7-1.3); GFR 65.6; MAGNESIUM 2.3 mg/dL (1.8-2.4); POTASSIUM 3.3 mmol/L (3.5-5.1)
[2021-02-15 11:00] VITALS: BP 165/96
[2021-02-15] MEDS ORDERED: POTASSIUM CHLORIDE 20 MEQ TABLET.ER. PO ONE (12:00)
--- NOTE | 2021-02-15 13:40 | NUR ---
SS following up with discharge planning. SS reviewed pt chart and discussed with pt RN. Pt is currently on room air. COVID19 negative. Repeat Head CT today. No PT/OT needs. Discharge plan is currently to home when medically ready for discharge.
--- NOTE | 2021-02-15 14:30 | RAD ---
EXAM: CT head without contrast INDICATION: Subdural hematoma COMPARISON: CT head 02/14/2021 and 02/13/2021 TECHNIQUE: Axial CT imaging through the head without intravenous contrast. Coronal reformats were obt ained One or more of the following individualized dose reduction techniques were utilized for this examinat ion: 1. Automated exposure control 2. Adjustment of the mA and/or kV according to patient size 3. Use of iterative reconstruction technique. FINDINGS: A small right frontoparietal subdural fluid collection is unchanged measuring 7 mm in greatest thickn ess. This is predominantly low density near CSF-attenuation with a small component of more hyperdense blood layering posteriorly. There is unchanged mild narrowing of the underlying sulci. No significan t midline shift. Ventricles are normal. Sulci elsewhere are normal. Basal cisterns are clear. There is no new intracranial hemorrhage. No acute infarct. Kerr-white matter differentiation is maint ained. The calvarium is intact. Paranasal sinuses and mastoid air cells are clear. 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 Right globe and orbits are intact. IMPRESSION: Unchanged small mixed density right frontoparietal subdural fluid collection. No new abno rmality. Electronically signed by: Marisa Rosenbaum MD (02/15/2021 2:28 PM) [id number]
[2021-02-15 15:00] VITALS: BP 128/75
--- NOTE | 2021-02-15 15:08 | DISCH ---
DISCHARGE INSTRUCTIONS Condition on Discharge Condition on Discharge: Stable Activity After Discharge Activity Instructions for Disc: Activity as tolerated Bathing Instructions: Shower-keep dressing dry, No Tub Bath until see Lifting Instructions after Dis: Do not lift >10 pounds Exercise Instruction after Dis: Walk 15 min, 3 x per day Driving Instructions after Dis: Do not drive today Weight Bearing Status after Di: As tolerated Diet after Discharge Diet after Discharge: Regular, Diabetic No Calorie Level Diet Texture: Regular Swallowing Supervision: None needed Wound Incision Care Wound/Incision Care: Ice to area for comfort, Keep wound elevated Follow-Up Follow up with: PCP within 2 weeks of discharge Follow Up With: Neurology as needed Treatment/Equipment after DC Adaptive Equipment Issued: None ASHLEE CRANE MD Feb 15, 2021 15:08
[2021-02-15] MEDS ORDERED: ACET500T68 PO (15:34)
--- NOTE | 2021-02-15 17:09 | NUR ---
Discharged patient to home. Discharge instructions given. PIV and heart monitor removed. Escorted patient off unit per wheelchair into a private vehicle.
--- NOTE | 2021-02-22 20:03 | PDOC3 ---
[facility]-Discharge Summary Date of Admission: Date of Admission: Feb 13, 2021 Date of Discharge: Date of Discharge: Feb 15, 2021 Discharge Diagnosis: Discharge Diagnosis: Subdural hematoma Hospital Course: Hospital Course: 75-year-old male who is originally from the country of [place]. He then was moved to the country of [facility] where he has lived as a refugee. He is now here in the [facility] and has some chronic hip pain. He came in today to have that evaluated, but he also had a headache. The ER doctor ordered a CAT scan of the brain and he does have a 9 mm subdural hematoma. I discussed the case with ER physician. We are going to admit the patient and consult Neurosurgery 02/14 Patient evaluated and examined at bedside. Was complaining still of quite a bit of headache. CT scan repeated and shows stable hematoma. Neurosurgery following. Home meds resumed today. Continue to monitor in ICU By day of discharge, pt was clinically stable and ready for discharge. Repeat CT scans were stable. Rest of hospital course was uneventful Disposition: Disposition/Orders: D/C to Home Activity: Activity: Resume previous activity Diet: Diet: Cardiac Medications: Home Meds Reported Medications Acetaminophen (ACETAMINOPHEN) 500 Mg Tablet, 1 TAB PO PRN Q6HRS PRN for pain or fever for 15 Days, #60 TAB 0 Refills 02/15/21 Propranolol Hcl (PROPRANOLOL HCL) 20 Mg Tablet, 1 TAB PO DAILY for htn, #60 TAB 2 Refills 02/14/21 Atorvastatin Calcium (ATORVASTATIN CALCIUM) 40 Mg Tablet, 1 TAB PO DAILY for high lipids, #30 TAB 5 Refills 02/14/21 Metformin Hcl (METFORMIN HCL) 500 Mg Tablet, 500 MG PO DAILY for ANTI-DIABETIC, TAB 0 Refills 02/14/21 Amlodipine Besylate (AMLODIPINE BESYLATE) 5 Mg Tablet, 5 MG PO DAILY for htn, TAB 02/14/21 Lisinopril (LISINOPRIL) 40 Mg Tablet, 1 TAB PO DAILY for htn, #30 TAB 5 Refills 02/14/21 Discontinued Scripts Ibuprofen (IBUPROFEN) 600 Mg Tablet, 600 MG PO PRN Q6HRS PRN for PAIN, #20 TAB take with food or milk Prov:KALYAN LISA DO 11/16/19 Scheduled Amlodipine Besylate (Amlodipine Besylate), 5 MG PO DAILY, (Reported) Atorvastatin Calcium (Atorvastatin Calcium), 1 TAB PO DAILY, (Reported) Lisinopril (Lisinopril), 1 TAB PO DAILY, (Reported) Metformin Hcl (Metformin Hcl), 500 MG PO DAILY, (Reported) Propranolol Hcl (Propranolol Hcl), 1 TAB PO DAILY, (Reported) Scheduled PRN Acetaminophen (Acetaminophen), 1 TAB PO PRN Q6HRS PRN for pain or fever, (Reported) Discontinued Medications Ibuprofen (Ibuprofen), 600 MG PO PRN Q6HRS PRN for PAIN Total Time: Total Time: Total time spent was 32 minutes in preparing scripts, discharge planning with SW and RN, and preparing this discharge summary. Patient seen and examined on day of discharge. Justicifation of Admission Dx: Justifications for Admission: Justification of Admission Dx: N/A ASHLEE CRANE MD Feb 22, 2021 20:03
== END 2021-02-15 17:14 | disposition home or self-care (01) | DRG 84 ==
LOC: ER 14:05 → ED HOLD 17:26 → 1 WEST ICU 18:41 → 6 SOUTH 02-14 18:14
PROVIDERS: ADMIT Internal Medicine; ATTEND Internal Medicine
DX: S06.5X9A Traumatic subdural hemorrhage with loss of consciousness of unspecified duration, initial encounter (principal); G89.29 Other chronic pain; H54.62 Unqualified visual loss, left eye, normal vision right eye; I10 Essential (primary) hypertension; M16.11 Unilateral primary osteoarthritis, right hip; M47.812 Spondylosis without myelopathy or radiculopathy, cervical region; Z83.3 Family history of diabetes mellitus; Z20.822 Contact with and (suspected) exposure to COVID-19
CPT/HCPCS: 36415; 70450; 72125; 73700; 80048; 80053; 83735; 83880; 84484; 85025; 85610; 85730; 87426; 93005; J2270; U0003; U0005; 99285-25; G0378

== ENCOUNTER → 2021-02-28 | Outpatient (CLI) | payer OTHER ==
[2021-02-15 15:00] VITALS: BP 128/75
[~2021-02-28] MED LIST changes: +ACET500T68 PO; +AMLO-186 PO; +ATOR40TA59 PO; +LISI-130 PO; +METF500T16 PO; +PROP20TA PO
--- NOTE | 2021-02-28 12:35 | RAD ---
EXAM: Head CT without contrast. HISTORY: Intracranial hemorrhage. TECHNIQUE: Computed tomographic images of the head were obtained without contrast. *One or more of the following individualized dose reduction techniques were utilized for this examina tion: 1. Automated exposure control. 2. Adjustment of the mA and/or kV according to patient size. 3. Use of iterative reconstruction technique. COMPARISON: 02/15/2021. FINDINGS: There has been interval decrease in the size of a late subacute to chronic subdural hematom a along the right cerebral convexity measuring approximately 7 mm in maximum thickness, compared to a prior measurement of 10 mm. The previously demonstrated areas of hyperdensity within the collection due to acute to subacute blood products have resolved. There is no new hemorrhage. There is no midlin e shift. There is no hydrocephalus. There are subtle areas of hypodensity within the cerebral white m atter, likely due to chronic small vessel disease. There is left phthisis bulbi. There is evidence of right lens surgery. There is paranasal sinus mucosal thickening. The mastoid air cells are clear. Th ere is no suspicious calvarial lesion. IMPRESSION: 1. Decreased size of a late subacute to chronic subdural hematoma along the right cerebral convexity. 2. Bilateral cerebral white matter changes, likely due to chronic small vessel disease. Electronically signed by: Makenzie Palma MD (02/28/2021 12:33 PM) [id number]
== END ==
LOC: CT 11:29
PROVIDERS: ATTEND Anesthesiology
DX: I62.03 Nontraumatic chronic subdural hemorrhage (principal); I62.9 Nontraumatic intracranial hemorrhage, unspecified; J34.89 Other specified disorders of nose and nasal sinuses; H44.522 Atrophy of globe, left eye
CPT/HCPCS: 70450